=== PATIENT | male | born 2000 | race Caucasian/White ===

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

== ENCOUNTER 2022-06-14 05:59 | Emergency (ER) | payer BC, SELFPAY ==
--- NOTE | ~2022-06-14 | XR_ITS ---
XR chest 1V portable DATE: 06/14/2022 06:34 INDICATION: Cough TECHNIQUE: Portable upright AP view on 06/14/2022 at 0632 hours COMPARISON: None FINDINGS: Normal heart size. No hilar or mediastinal enlargement. No pulmonary infiltrate or consolid ation, pleural effusion or pulmonary vascular congestion or pneumothorax. Included skeletal structure s are unremarkable. IMPRESSION: Negative Reviewed, dictated and finalized at location A. MED SURG IMPRESSION: Negative
[2022-06-14 06:06] VITALS: BP 131/91; PULSE 120; RESP 20; TEMP 39.2; O2SAT 98
[2022-06-14] MEDS: ACETAMINOPHEN 500 MG TABLET 1000 MG PO (06:24)
[2022-06-14 06:56] LABS: Influenza A QL RT-PCR Positive (Negative); Influenza B QL RT-PCR Negative (Negative); SARS-CoV-2 RNA PCR Negative
[2022-06-14 07:21] VITALS: BP 145/59; PULSE 100; RESP 20; O2SAT 98
--- NOTE | 2022-06-14 07:44 | ED.FEVER ---
HPI - Fever General Chief Complaint: Fever Stated Complaint: cough, fever, abd pain Time Seen by Provider: 06/14/22 07:05 History of Present Illness HPI Narrative: Patient is a 21-year-old male who presents to the ER with cold symptoms. Yesterday began having fever and body aches as well as cough. Intermittent nausea and vomiting. No diarrhea. No chest pain or chest pressure. No known sick contacts. Concerned he may have the flu. No alleviating factors. Related Data Allergies Allergy/AdvReac Type Severity Reaction Status Date / Time No Known Allergies Allergy Mild Verified 05/25/13 16:11 Review of Systems Review of Systems: All systems reviewed & are unremarkable except as noted in HPI and below Constitutional: Constitutional: Reports chills, Reports fatigue and Reports fever(s) ENT: Denies nasal congestion and Reports sore throat Cardiovascular: Cardiovascular: Denies chest pain, Denies rapid heart rate and Denies radiating jaw, neck or arm pain Respiratory: Respiratory: Reports cough, Denies dyspnea and Denies wheezing Gastrointestinal: Gastrointestinal: Reports nausea and Reports vomiting Musculoskeletal: Musculoskeletal: Denies back pain, Reports myalgias and Denies joint swelling PMFSH Past Medical History Medical History (Updated 06/14/22 @ 08:05 by Paulino Martell MD) Asthma Surgical History Surgical History (Updated 06/14/22 @ 08:05 by Paulino Martell MD) No pertinent past surgical history Social History Social History (Updated 06/14/22 @ 08:05 by Paulnio Martell MD) Smoking status: Never smoker Exam Narrative: GENERAL: Well-appearing, well-nourished, and in no acute distress. HEAD: Normocephalic, atraumatic. EYES: PERRL and EOMI. CHEST: Clear to auscultation. No respiratory distress. HEART: Tachycardic and regular.. Normal peripheral pulses. EXTREMITIES: Normal range of motion. No edema. NEURO: Alert and oriented x3. PSYCH: Normal mood and affect. Course DIETETIC AIDE/PA Physician Supervision Declined IV fluids. Received Tylenol. Discussed supportive care. Discharge home. Vital Signs Vital signs: Vital Signs Temperature 102.6 F H 06/14/22 06:06 Pulse Rate 120 H 06/14/22 06:06 Respiratory Rate 20 06/14/22 06:06 Blood Pressure 131/91 H 06/14/22 06:06 Pulse Oximetry 98 06/14/22 06:06 Temperature 102.6 F H 06/14/22 06:06 Pulse Rate 100 06/14/22 07:21 Respiratory Rate 20 06/14/22 07:21 Blood Pressure 145/59 H 06/14/22 07:21 Pulse Oximetry 98 06/14/22 07:21 MDM - Fever Lab Data Labs: Lab Results 06/14/22 Range/Units 06:17 Influenza A (RT-PCR) Positive (Negative) Influenza B (RT-PCR) Negative (Negative) SARS-CoV-2 RNA (RT-PCR) Negative Discharge Plan Discharge Clinical Impression: Influenza A Patient Disposition: Home, Self-Care Condition: Stable Instructions: Influenza (ED) Additional Instructions: Return to the ER if you cannot keep down food/water, you lose consciousness, or have additional conerns. Take tylenol for fever and ondansetron for nausea/vomiting. Prescriptions: New oseltamivir 75 mg capsule 75 mg PO BID Qty: 10 0RF ondansetron 4 mg tablet,disintegrating 4 mg PO Q6H PRN (Reason: nausea and vomiting) Qty: 10 0RF Follow-up/Referrals: Sabas,NESHA Garcia [Primary Care Provider] - 1 Week
[2022-06-14 08:05] VITALS: BP 153/83; PULSE 100; RESP 18; O2SAT 99
== END 2022-06-14 08:05 | disposition home or self-care (01) ==
PROVIDERS: Emergency Medicine; Emergency Provider Emergency Medicine; PCP Nurse Practitioner Family
DX: J10.1 Influenza due to other identified influenza virus with other respiratory manifestations (principal); Z20.822 Contact with and (suspected) exposure to COVID-19; J45.909 Unspecified asthma, uncomplicated
CPT/HCPCS: 71045; 87636; 99283; A9270